=== PATIENT | male | born 1965 | race Caucasian/White ===

== ENCOUNTER 2017-03-13 17:37 | Inpatient (IN) | payer OTHER ==
[~2017-03-13] VITALS: Ht 180 cm; Wt 59.0 kg
[2017-03-13 17:40] VITALS: BP 113/70
[2017-03-13 18:10] LABS: BASO # 0.1 10*3/uL (0.0-0.1); BASO % 0.6 % (0.0-1.0); EOS # 0.1 10*3/uL (0.0-0.4); EOS % 0.8 % (1.0-4.0); HEMOGLOBIN 15.9 g/dl (14.0-18.0); LYMPH # 2.1 10*3/uL (1.3-4.4); LYMPH % 26.5 % (27.0-41.0); MEAN CELL VOLUME 86.8 fl (80.0-94.0); MEAN CORPUSCULAR HGB 31.4 pg (27.0-31.0); MEAN CORPUSCULAR HGB CONC 36.1 g/dl (33.0-37.0); MEAN PLATELET VOLUME 9.3 fl (9.6-12.3); MONO # 0.5 10*3/uL (0.1-1.0); MONO % 5.8 % (3.0-9.0); NEUT # 5.3 10*3/uL (2.3-7.9); PLATELET COUNT AUTOMATED 220 10*3/uL (130-400); RED BLOOD COUNT 5.07 10*6/uL (4.50-5.90); RED CELL DISTRI WIDTH 12.4 % (0-14.5)
[2017-03-13 18:20] LABS: INTERNATIONAL NORM RATIO 1.1 (2.0-3.5)
[2017-03-13 18:26] VITALS: BP 129/73
[2017-03-13 18:27] LABS: ALBUMIN 4.4 gm/dl (3.1-4.5); ALKALINE PHOSPHATASE 76 U/L (45-117); BILIRUBIN, TOTAL 1.5 mg/dl (0.2-1.0); BUN 11 mg/dl (7-24); CARBON DIOXIDE 27 mmol/L (21-32); CHLORIDE 103 mmol/L (98-107); EST GLOM FILT AFRICAN AMERICAN > 60 ml/min; GLUCOSE 90 mg/dL (65-99); POTASSIUM 3.8 mmol/L (3.5-5.1); SGOT/AST 56 IU/L (3-35); SGPT/ALT 94 U/L (12-78); SODIUM 138 mmol/L (136-145); TOTAL PROTEIN 7.9 gm/dL (6.4-8.2)
[2017-03-13 19:02] LABS: BILIRUBIN NEGATIVE (NEGATIVE); BLOOD NEGATIVE (NEGATIVE); CLARITY CLEAR (CLEAR); COLOR YELLOW (YELLOW); GLUCOSE NEGATIVE (NEGATIVE); KETONE NEGATIVE (NEGATIVE); LEUKO ESTERASE NEGATIVE (NEGATIVE); NITRITE NEGATIVE (NEGATIVE); PROTEIN NEGATIVE (NEGATIVE); UROBILINOGEN >= 8.0 E.U./dl (0.2-1.0)
[2017-03-13] MEDS ORDERED: SUBOXONE 12 MG1 EACH SL (19:02)
[2017-03-13 19:11] LABS: URINE AMPHETAMINES < 1000 (1000ng/ml); URINE BARBITURATES < 200 (200ng/ml); URINE COCAINE < 300 (300ng/ml)
[2017-03-13 19:20] LABS: BACTERIA TRACE; EPITHELIAL CELLS 0-2; URINE REFLEX COMMENT NO (NO); WBC 0-2 wbc/hpf (0-5)
[2017-03-13 20:00] VITALS: BP 100/51
[2017-03-14] VITALS: BP 102/57
[2017-03-14 04:00] VITALS: BP 91/78
[2017-03-14 08:00] VITALS: BP 112/88
[2017-03-14 12:00] VITALS: BP 94/64
[2017-03-14 16:00] VITALS: BP 92/53
[2017-03-14 20:00] VITALS: BP 98/53
[2017-03-15] VITALS: BP 90/60
[2017-03-15 08:00] VITALS: BP 92/54
[2017-03-15 12:00] VITALS: BP 99/58
[2017-03-15 16:00] VITALS: BP 103/56
[2017-03-15 20:00] VITALS: BP 95/55
[2017-03-16] VITALS: BP 96/56
[2017-03-16 06:46] LABS: BASO # 0.1 10*3/uL (0.0-0.1); BASO % 1.5 % (0.0-1.0); EOS # 0.4 10*3/uL (0.0-0.4); EOS % 5.6 % (1.0-4.0); HEMOGLOBIN 14.7 g/dl (14.0-18.0); LYMPH # 2.8 10*3/uL (1.3-4.4); LYMPH % 43.3 % (27.0-41.0); MEAN CELL VOLUME 90.5 fl (80.0-94.0); MEAN CORPUSCULAR HGB 31.7 pg (27.0-31.0); MEAN PLATELET VOLUME 9.9 fl (9.6-12.3); MONO # 0.5 10*3/uL (0.1-1.0); NEUT # 2.7 10*3/uL (2.3-7.9); NEUT % 42.3 % (47.0-73.0); PLATELET COUNT AUTOMATED 186 10*3/uL (130-400); RED BLOOD COUNT 4.64 10*6/uL (4.50-5.90); RED CELL DISTRI WIDTH 12.5 % (0-14.5); WHITE BLOOD COUNT 6.5 10*3/uL (4.8-10.8)
[2017-03-16 07:11] LABS: EST GLOM FILT AFRICAN AMERICAN > 60 ml/min
[2017-03-16 08:00] VITALS: BP 90/55
[2017-03-16] MEDS ORDERED: ATARAX,VISTARIL50 MG PO (09:38)
[2017-03-16] MEDS ORDERED: ZOFRAN 4 MG ED2 TAB PO (09:38)
== END 2017-03-16 11:49 | disposition home or self-care (01) | DRG 897 ==
LOC: ED 17:37 → EDHOLD 17:55 → 4E 17:55
PROVIDERS: Emergency Medicine; Internal Medicine
DX: F11.23 Opioid dependence with withdrawal (principal); B19.20 Unspecified viral hepatitis C without hepatic coma; F17.210 Nicotine dependence, cigarettes, uncomplicated; M79.1 Myalgia; R19.7 Diarrhea, unspecified; Z80.9 Family history of malignant neoplasm, unspecified; Z82.49 Family history of ischemic heart disease and other diseases of the circulatory system; Z79.899 Other long term (current) drug therapy; Z71.6 Tobacco abuse counseling